=== PATIENT | female | born 1995 | race Caucasian/White ===

== ENCOUNTER 2019-09-25 02:58 | Inpatient (IN) | payer BC ==
[~2019-09-25] VITALS: Ht 157.5 cm; Wt 65.0 kg
[2019-09-25] VITALS (35 sets, daily range): BP systolic 86–141; BP diastolic 51–88; PULSE 72–137; TEMP 98.3–98.6
--- NOTE | 2019-09-25 02:55 | NUR ---
To unit via wheelchair for labor assessment, accompanied by spouse. Reports contractions started increasing in frequency and strength last evening
[2019-09-25] MEDS ORDERED: SYNTHROID 0.10.15 MG PO (03:10)
[2019-09-25] MEDS ORDERED: SYNTHROID0.137 MG (03:10)
[2019-09-25] MEDS ORDERED: PRENATAL TABLET PO (03:11)
[2019-09-25 05:39] LABS: BASO # 0.1 (0.0-0.2); BASO % 0.3 % (0.0-2.0); EOS # 0.2 (0.0-0.7); EOS % 0.9 % (0-4.0); GRAN # 15.6 (1.4-6.5); GRAN % 81.1 % (42.2-75.2); HEMATOCRIT 39.5 % (37.0-47.0); LYMPH % 10.2 % (20.0-51.0); MEAN CELL VOLUME 83 fl (80.0-100.0); MEAN CORPUSCULAR HEMOGLOBIN 27 pg (27.0-31.0); MEAN CORPUSCULAR HGB CONC 33 g/dl (33.0-37.0); MEAN PLATELET VOLUME 9.3 fl (7.4-10.4); MONO # 1.2 (0.1-0.6); MONO % 6.3 % (1.7-9.3); PLATELET COUNT 246 K/mm3 (130-400); RED BLOOD COUNT 4.79 M/mm3 (4.10-5.30); REDCELL DISTRIBUTION WIDTH-CV 14.8 % (11.5-14.5)
--- NOTE | 2019-09-25 06:28 | NUR ---
Reactive FHR strip. Pt taken off monitors. Up to birthing ball.
--- NOTE | 2019-09-25 07:18 | NUR ---
Pt back to monitors. SVE per this RN /-1. Pt up to BB. 0750-LR bolus infusing. 0800-Reactive FHR strip obtained. Pt taken off monitors. IV to saline lock.
--- NOTE | 2019-09-25 08:42 | NUR ---
Pt back to monitors in bed. 0913-Reactive FHR strip obtained. Pt taken off monitors to birthing ball. 0942-Pt back to monitors. Dr. Lopez at bedside. AROM of clear fluid performed by provider. SVE 0. Pericare performed.
--- NOTE | 2019-09-25 10:52 | NUR ---
Pt back to monitors from birthing ball. SVE per this RN unchanged from AROM. Discusses pain management/labor progression. 1124-Pt requesting epidural. LR bolus infusing. Sitting at EOB for epidural placement.
--- NOTE | 2019-09-25 15:10 | NUR ---
SVE per this RN C/+1. Begins pushing with patient. 1716-Dr. Lopez notified of pushing x2 hours. Requested to unit to evaluate. This RN continues pushing with pt. Moves vertex well. 1730-Dr. Lopez requested to unit. 1742- of viable male attended by Dr. Lopez. Cord clamped x 2 and cut from umbilicus. dried and placed on mother's abdomen. Care of infant to Russ Anaya RN. 1750- of placenta. Pitocin bolus infusing per protocol. MLE and second degree laceration repaired per Dr. Lopez. Orders for methergine. See EMAR.
--- NOTE | 2019-09-25 20:50 | NUR ---
PT UP TO BATHROOM VIA WHEELCHAIR, LEG STILL NUMB FOLLOWING EPIDURAL/DELIVERY. PT ABLE TO VOID 700MLS. PERICARE PROVIDED, ICE PACK PAD, TUCKS, AND MESH UNDERWEAR ON. EPIDURAL REMOVED, BLUE TIP INTACT. CLEAN GOWN ON. PT TO VIA WHEELCHAIR. ORIENTED TO ROOM.
[2019-09-26 02:00] VITALS: BP 97/62; PULSE 72; TEMP 98.2
[2019-09-26 07:48] VITALS: BP 98/57; PULSE 78; TEMP 97.9
--- NOTE | 2019-09-26 09:09 | NUR ---
Initial visit;Parents thanked Assistant Pastry Chef for offering congratulations and God's blessings for the of their son. Assistant Pastry Chef thanked family for choosing [facility].
[2019-09-26 11:23] VITALS: BP 108/61; PULSE 80
[2019-09-26 19:45] VITALS: BP 87/56; PULSE 75; TEMP 98.1
[2019-09-27] MEDS ORDERED: IBU600 MG PO (08:26)
[2019-09-27 08:40] VITALS: BP 101/58; PULSE 88; TEMP 97.4
== END 2019-09-27 12:35 | disposition home or self-care (01) | DRG 806 ==
LOC: LDRO 02:58 → LDR 05:00 → OB 20:50
PROVIDERS: Student in an Organized Health Care Education/Training Program; ADMIT Obstetrics & Gynecology
PROC: 10E0XZZ Delivery of Products of Conception, External Approach (ICD-10-PCS; principal; 2019-09-25)
PROC: 10907ZC Drainage of Amniotic Fluid, Therapeutic from Products of Conception, Via Natural or Artificial Opening (ICD-10-PCS; 2019-09-25)
PROC: 0W8NXZZ Division of Female Perineum, External Approach (ICD-10-PCS; 2019-09-25)
DX: O99.02 Anemia complicating childbirth (principal); O72.1 Other immediate postpartum hemorrhage; Z37.0 Single live birth; D64.9 Anemia, unspecified; Z3A.38 38 weeks gestation of pregnancy; Z85.850 Personal history of malignant neoplasm of thyroid
CPT/HCPCS: J2210; J2405; J2590; J7120

== ENCOUNTER 2021-06-18 09:42 | Outpatient (CLI) | payer BC ==
[~2021-06-18] VITALS: Ht 157.5 cm; Wt 68.6 kg
[~2021-06-18 09:42] MED LIST: IBU600 MG PO; PRENATAL TABLET PO; SYNTHROID 0.10.15 MG PO; SYNTHROID0.137 MG
--- NOTE | 2021-06-18 10:05 | NUR ---
Pt arrived on unit ambulatory for scheduled external version. Pt denies contractions, leaking of fluid or vaginal bleeding and reports normal movement. EFM and toco monitors started. Vital signs WNL. Plan of care reviewed with pt and at the bedside.
[2021-06-18] MEDS ORDERED: UNISOM25 MG PO (10:24)
[2021-06-18 10:30] VITALS: BP 116/71; PULSE 93
--- NOTE | 2021-06-18 12:10 | NUR ---
Pt off EFM. Dr. Lopez and Dr. Bains at the bedside. Ultrasound and external version done. See physician notes for details. Plan of care reviewed with pt and at the bedside.
--- NOTE | 2021-06-18 14:20 | NUR ---
Discharge instructions and follow up care reviewed with pt and at the bedside. Both verbalized an understanding, agreed with the plan and states no questions or concerns at this time.
== END 2021-06-18 14:25 | disposition home or self-care (01) ==
LOC: LDRO 09:42
DX: O26.893 Other specified pregnancy related conditions, third trimester (principal); Z3A.41 41 weeks gestation of pregnancy

== ENCOUNTER 2021-06-30 16:36 | Inpatient (IN) | payer BC ==
[~2021-06-30] VITALS: Ht 157.5 cm; Wt 68.6 kg
[2021-06-30] VITALS (14 sets, daily range): BP systolic 103–128; BP diastolic 52–76; PULSE 74–112; TEMP 98.7–99.1
[~2021-06-30 16:36] MED LIST changes: +UNISOM25 MG PO
--- NOTE | 2021-06-30 17:00 | NUR ---
1700 - PATIENT AMBULATORY TO LDR6 ACCOMPANIED BY SPOUSE. PATIENT ORIENTED TO ROOM. PATIENT CHANGES INTO GOWN. 1710 - PLAN OF CARE DISCUSSED AND PATIENT AGREEABLE TO PLAN. PATIENT PLACED ON MONITOR. IV STARTED IN LEFT WRIST. LABS DRAWN ORDERED. 1715 - CONSENTS REVIEWED AND SIGNED. CARE ONGOING.
--- NOTE | 2021-06-30 17:40 | NUR ---
1740 - MD ROLANDO AT BEDSIDE. 174 - SVE PERFORMED BY MD ROLANDO. 6100/0. AROM PERFORMED BY MD ROLANDO. MATTHEW CARE PERFORMED. PATIENT REPOSITIONED. CARE ONGOING.
[2021-06-30 17:42] LABS: BASO % 0.2 % (0.0-2.0); EOS # 0.2 K/mm3 (0.0-0.7); EOS % 1.9 % (0.0-4.0); GRAN # 9.2 K/mm3 (1.4-6.5); GRAN % 72.6 % (42.2-75.2); LYMPH # 2.3 K/mm3 (1.2-3.4); LYMPH % 17.8 % (20.0-51.0); MEAN CELL VOLUME 72 fl (80.0-100.0); MEAN CORPUSCULAR HGB CONC 31 g/dl (33.0-37.0); MEAN PLATELET VOLUME 9.7 fl (7.4-10.4); MONO # 0.8 K/mm3 (0.1-0.6); MONO % 6.2 % (1.7-9.3); PLATELET COUNT 312 K/mm3 (130-400); RED BLOOD COUNT 4.11 M/mm3 (4.10-5.30); REDCELL DISTRIBUTION WIDTH-CV 15.8 % (11.5-14.5)
[2021-06-30 17:44] LABS: HEMATOCRIT 29.4 % (37.0-47.0); MEAN CORPUSCULAR HEMOGLOBIN 22 pg (27-31)
--- NOTE | 2021-06-30 18:30 | NUR ---
Report received from Melany Lynn RN. Pt sitting on birthing ball and reports feeling a lot of pressure and saying "I need to poop." Educated pt after contraction and when ready to lay in bed so we can check cervix. Pt crying and very uncontrolled with contraction. Emotional support given to pt with spuose at pts side. Educated pt to deep breath through contractions. Pt tolerated well. 3215-3193: Difficulty tracing contractions due to maternal movement and pain. RN at bedside to palpate firm contractions with relaxation between. 1352-6920: Difficulty tracing FHR due to maternal position on left lateral and pain level. RN adjusting monitors when pt allows. 1845: SVE 7-8. Pt still unsure of epidural. 1848: Pt requesting epidural. Reanna, CHEMICAL LABORATORY TESTER notified. 1853: SVE 8-9. Pt feeling the urge to push with contractions. Educated pt on deep breathing due to not being complete yet. 1856: called for delivery. 1901: Pt feeling a lot of pressure and pain. Reanna at bedside. Decision made for spinal block due to cervix changing quickly. Pt veralizes her okay. 1905: Spinal medication given. at bedside for delivery. Pt assisted to simifowlers. Pt getting relief with medication with contractions. 1911: SVE C/+2 by . Pt prepped for delivery and repositioned into footplates to start pushing with provider. [id number]: Pt pushing with provider who reviews FHR strip. Difficulty tracing FHR due to maternal pushing and pain. Pulse ox applied. This RN adjusts monitors to assess FHR. Audible FHR noted 100-90bpms with intermittent decelerations noted down to 50bpm at lowest point. pushing with pt and hears FHR. 1921: Oxygen administered via oxymask at 10L. 1947: Right MLE cut by provider. Spontaneous delviery of viable female infant by . Pitocin turned off per protocol. Cord clamped X2 and cut by FOB. to mothers chest where dried and stimulated by nursery RN. Care of infant assumed by Raul CONTRERAS. 1999: Spontaneous delivery of intact placenta by . Pitocin resummed at 333mu/hr per protocol. Right MLE repaired by . Straight cath completed. Fundal message completed by this RN fundus firm, midline with minimal amount of clots expressed. Pericare completed. Pads changed and pt repositioned in bed. Plan of care and saferty precautions explained to pt and spouse who verbalize their understanding. Call light within reach.
[2021-07-01 03:00] VITALS: BP 110/71; PULSE 94
[2021-07-01 07:58] VITALS: BP 103/58; PULSE 88; TEMP 97.8
--- NOTE | 2021-07-01 09:14 | NUR ---
Initial visit; Patient and her thanked Health Care Marketing Specialist for offering congratulations and God's blessings for the of their daughter. Health Care Marketing Specialist thanked family for choosing our hospital of which patient expressed nothing but praise for her and her baby's care since she has been here at [facility], [place].
[2021-07-01 12:15] VITALS: BP 111/66; PULSE 81; TEMP 98.2
[2021-07-01 16:32] VITALS: BP 113/67; PULSE 69; TEMP 97.8
[2021-07-01 20:00] VITALS: BP 106/66; PULSE 82; TEMP 98.6
[2021-07-02] MEDS ORDERED: IBU800 M1 PO (08:22)
[2021-07-02 08:38] VITALS: BP 112/69; PULSE 85; TEMP 97.9
== END 2021-07-02 10:55 | disposition home or self-care (01) | DRG 806 ==
LOC: LDRO 16:36 → OB 17:00 → LDR 17:00 → OB 23:55
PROVIDERS: ADMIT Obstetrics & Gynecology
PROC: 10E0XZZ Delivery of Products of Conception, External Approach (ICD-10-PCS; principal; 2021-06-30)
PROC: 0W8NXZZ Division of Female Perineum, External Approach (ICD-10-PCS; 2021-06-30)
PROC: 10907ZC Drainage of Amniotic Fluid, Therapeutic from Products of Conception, Via Natural or Artificial Opening (ICD-10-PCS; 2021-06-30)
PROC: 3E033VJ Introduction of Other Hormone into Peripheral Vein, Percutaneous Approach (ICD-10-PCS; 2021-06-30)
DX: O48.0 Post-term pregnancy (principal); O33.0 Maternal care for disproportion due to deformity of maternal pelvic bones; Z37.0 Single live birth; O43.123 Velamentous insertion of umbilical cord, third trimester; O99.613 Diseases of the digestive system complicating pregnancy, third trimester; K21.9 Gastro-esophageal reflux disease without esophagitis; Z3A.40 40 weeks gestation of pregnancy; Z85.850 Personal history of malignant neoplasm of thyroid
CPT/HCPCS: J0461; J1885; J2405; J2590; J3010; J7120